=== PATIENT | female | born 1985 | race Caucasian/White ===

== ENCOUNTER 2018-03-18 05:44 | Day surgery (SDC) | payer MEDICAID ==
[2018-03-18] MEDS ORDERED: PROPOFOL 200 MG INJ (07:00)
[2018-03-18] MEDS ORDERED: LABETALOL HCL 20MG INJ IV (07:30)
[2018-03-18] MEDS ORDERED: ACETAMINOPHEN 1000MG/100ML IV 100 ML (07:30)
[2018-03-18] MEDS ORDERED: ALBUTEROL 0.083% (NEB) 2.5 MG/3 ML AMP HHN (07:30)
[2018-03-18] MEDS ORDERED: FENTAnyl 50 MCG/ML VIAL IV ×2 (07:30)
[2018-03-18] MEDS ORDERED: MEPERIDINE 25 MG INJ IV (07:30)
[2018-03-18] MEDS ORDERED: morphine (1 MG/ML) 10ML SYRINGE IV ×2 (07:30)
[2018-03-18] MEDS ORDERED: OXYCODONE/ACETAMINOPHEN (5/325) TAB PO ×2 (07:30)
[2018-03-18] MEDS ORDERED: DIPHENHYDRAMINE 50 MG INJ IV (07:30)
[2018-03-18] MEDS ORDERED: LIDOCAINE 2% (SDV) 5 ML INJ (07:32)
[2018-03-18] MEDS ORDERED: DEXAMETHASONE 4 MG/ML 1 ML INJ (07:32)
[2018-03-18] MEDS ORDERED: MIDAZOLAM 1 MG/ML 2 ML INJ (07:32)
[2018-03-18] MEDS ORDERED: ROCURONIUM 50 MG INJ (07:32)
[2018-03-18] MEDS ORDERED: ONDANSETRON 4 MG INJ (07:32)
[2018-03-18] MEDS ORDERED: PROPOFOL 40 ML (07:32)
[2018-03-18] MEDS ORDERED: FAMOTIDINE 20 MG INJ (07:33)
[2018-03-18] MEDS ORDERED: CEFAZOLIN 1 GM INJ (07:34)
[2018-03-18] MEDS ORDERED: SUGAMMADEX SODIUM 200 MG/2 ML VIAL IV (08:23)
[2018-03-18] MEDS ORDERED: PHENYLephrine (100 MCG/ML) 5ML SYG (08:23)
[2018-03-18] MEDS: BUPIVACAINE 0.25%/EPI (SDV) 30 ML INJ (08:30)
[2018-03-18] MEDS: ONDANSETRON 4 MG INJ IV (09:14)
[2018-03-18] MEDS: HYDROmorphONE 1 MG/5 ML IV SYRINGE IV ×3 (09:15→09:37)
== END 2018-03-18 11:15 | disposition home or self-care (01) ==
LOC: SDS 05:44
DX: Z30.2 Encounter for sterilization (principal)
CPT/HCPCS: 58670